=== PATIENT | female | born 1960 | race Asian ===

== ENCOUNTER 2023-07-24 16:10 | Emergency (ER) | payer BC, SELFPAY ==
[2023-07-24 16:16] VITALS: BP 130/75
[2023-07-24 18:23] VITALS: BMI 21.5
--- NOTE | 2023-07-24 18:38 | ED.SKININJ ---
HPI-Injury
General
Chief Complaint: Skin Surface Trauma
Source: patient
Exam Limitations: none
Time Seen by Provider: 07/24/23 18:19
Nursing documentation reviewed up to this point in time: agreed with
Travel History
Have you had any contact with someone who has COVID-19?: No
Do you have any symptoms of coronavirus? Fever > 100 degrees, chills, cough, shortness of breath, sore throat, loss of taste or smell, muscle aches, or headache?: No
History of Present Illness-Injury
Is this injury a work related problem?: No
Is pt an associate of [facility]?: No
Initial Injury comments:
accidentally cut finger with knife. Sustained lac to left lateral thumb. Injury occurred just [facility]
Past History
Past History
ED Past Medical History: Hypercholesterolemia and Other (Ovarian cyst); Negative Asthma, HTN or NIDDM
ED Past Surgical History: (X 1)
Social History
Tobacco: Non-smoker
Alcohol: None
Personal:
Living: with family
Review of Systems
Review of Systems
Allergies reviewed?: Yes
All Other Systems: ROS reviewed and negative except as documented in HPI and ROS
Constitutional: Reports no symptoms
Musculoskeletal: Reports no symptoms
Skin: Reports other (laceration to left lateral thumb)
Neurological: Reports no symptoms
Psychiatric: Reports no symptoms
Skin Exam
Laceration
Left Lateral Thumb:
Length in cm: 1.5
Orientation: diagonal
Type of Laceration: simple
Any active bleeding?: no active bleeding
Distal skin color and temperature: normal-warm & good color
Normal distal neurovascular exam: Yes
Range of motion: full
Phy Exam
General Physical Exam
General Presentation: well appearing and no apparent distress
General age: appears stated age
General Skin: warm and dry
General Habitus: normal
General Mental: alert
General Hydration: appears well hydrated
Musculoskeletal Exam
Musculoskeletal Exam: full ROM and neuro vasc intact
Skin Exam
Skin Exam: normal color, warm/dry and no rash
Psychiatric Exam
Psychiatric Exam: normal mood/affect
Course
Orders/Labs/Results
Orders:
Orders
07/24/23 18:36
Tetanus/Diphth/Acelpertussis [Adacel] 0.5 ml IM .ONCE ONE
Vital Signs
Initial and Last Documented VS:
Initial Vital Signs
Temp Pulse Resp BP Pulse Ox
98.0 F 68 16 130/75 98
07/24/23 16:16 07/24/23 16:16 07/24/23 16:16 07/24/23 16:16 07/24/23 16:16
Last Documented Vital Signs
Temp Pulse Resp BP Pulse Ox
98.0 F 68 16 130/75 98
07/24/23 16:16 07/24/23 16:16 07/24/23 16:16 07/24/23 16:16 07/24/23 16:16
Procedures
Laceration Closure
Left Lateral Thumb:
Status of Wound: clean
Description of Wound Edges: sharp
Preparation: cleaned with saline
Revision/Debridement: routine- no revision
Wound exploration: explored to base- no FB and no tendon involvement
Type of Closure: Dermabond-skin glue
*Critical Care Note
Total Time (30-74mins, 75-104mins- exclusive of procedures): Not Applicable
ED Attending Note
-
Portions of this chart may have been created with voice recognition software.� Occasional wrong word or��sound alike� substitutions may have occurred due to the inherent limitations of voice recognition software.
Discharge Plan
Departure
Patient Disposition: Home (Routine Discharge)
Date of Disposition: 07/24/23
Time of Disposition: 18:36
Patient with high blood pressure during this ER visit?: No
Condition: Good
Covid-19: Not Applicable
Discharge Problem:
Finger laceration
Instructions: Laceration Repair With Glue ED
Prescriptions:
No Action
dibucaine 30 GM ointment
30 gm TP QID Qty: 1 0RF
Rx Instructions:
Apply Topically to the rectal area
Activity Restrictions/Additional Instructions:
Do not remove tape strips.
Interventions
Interventions:
*Risk Screen - Suicide Last Done: 07/24/23 18:23
*General Assessment Last Done: 07/24/23 18:24
*Neglect/Abuse Screening Last Done: 07/24/23 18:23
ED- Fall Risk Assessment Last Done: 07/24/23 18:23
*ED COVID-19 Vaccine History Last Done: 07/24/23 18:24
ED-Skin Assessment Last Done: 07/24/23 18:25
Discharge Date and Time
Print Language: YI
[2023-07-24] MEDS: ADACEL 0.5 ML IM (18:44)
== END 2023-07-24 18:49 | disposition home or self-care (01) ==
LOC: EMR 16:10
PROVIDERS: EMERGENCY PHYSICIAN Emergency Medicine; FAMILY PHYSICIAN Family Medicine
DX: S61.012A Laceration without foreign body of left thumb without damage to nail, initial encounter (principal); W26.0XXA Contact with knife, initial encounter; Y93.G1 Activity, food preparation and clean up; Z23 Encounter for immunization; E78.00 Pure hypercholesterolemia, unspecified
CPT/HCPCS: 99282; 12001; 90471; 90715

== ENCOUNTER → 2023-11-12 13:30 | Outpatient (REF) | payer BC, SELFPAY | LOC: HWWDC 13:30 | PROVIDERS: ATTENDING PHYSICIAN Nurse Practitioner Women's Health; FAMILY PHYSICIAN Family Medicine | DX: Z12.31 Encounter for screening mammogram for malignant neoplasm of breast (principal) | CPT/HCPCS: 77063; 77067 ==

== ENCOUNTER → 2023-11-30 14:34 | Outpatient (REF) | payer BC, SELFPAY | LOC: HWRAD 14:34 | PROVIDERS: ATTENDING PHYSICIAN Nurse Practitioner Women's Health; FAMILY PHYSICIAN Family Medicine | DX: Z78.0 Asymptomatic menopausal state (principal) | CPT/HCPCS: 77080 ==

== ENCOUNTER → 2025-01-25 15:45 | Outpatient (REF) | payer BC, SELFPAY | LOC: WDC 15:45 | PROVIDERS: ATTENDING PHYSICIAN Nurse Practitioner Women's Health; FAMILY PHYSICIAN Family Medicine | DX: Z12.31 Encounter for screening mammogram for malignant neoplasm of breast (principal) | CPT/HCPCS: 77063; 77067 ==